=== PATIENT | male | born 1965 | race Caucasian/White ===

== ENCOUNTER 2019-09-02 23:26 | Emergency (ER) | payer OTHER ==
[~2019-09-02] VITALS: Ht 198.1 cm; Wt 90.9 kg
[2019-09-02 23:29] VITALS: BP 119/73
[2019-09-02] MEDS ORDERED: HYDR28CR14 TOP (23:48)
[2019-09-02] MEDS ORDERED: PRED20TA PO (23:48)
[2019-09-02] MEDS ORDERED: diphenhydrAMINE 25mg capsule PO ONE (23:50)
== END 2019-09-03 00:41 | disposition home or self-care (01) ==
LOC: ER 23:27
DX: R21 Rash and other nonspecific skin eruption (principal); Z88.0 Allergy status to penicillin; Z79.899 Other long term (current) drug therapy
CPT/HCPCS: 99283; Q0163